=== PATIENT | male | born 1950 | race Caucasian/White ===

== ENCOUNTER 2018-01-05 07:49 | Day surgery (SDC) | payer MEDICARE, MEDICAID ==
[~2018-01-05] VITALS: Ht 180.3 cm; Wt 83.0 kg
[2018-01-05] VITALS (10 sets, daily range): BP systolic 116–156; BP diastolic 65–80
[~2018-01-05 07:49] MED LIST: HYDR-3965 PO; IBUP-1984 PO; LISI-600 PO; TIZA4CAP6 PO; ceFAZolin 2gm in dextrose, iso 100 ML IV ONE; famotidine 20mg tablet PO ONE; ringers solution, lacted 1,000 ML IV SCH
[2018-01-05 09:27] LABS: BASOPHILS % (AUTO) 0.4 % (0-1); EOSINOPHILS # (AUTO) 0.1 X10'3 (0-0.9); EOSINOPHILS % (AUTO) 2.4 % (0-6); LYMPHOCYTES # (AUTO) 1.3 X10'3 (1.1-4.8); LYMPHOCYTES % (AUTO) 22.3 % (21-51); MEAN CORPUSCULAR HEMOGLOBIN 33.2 PG (27.0-31.0); MEAN CORPUSCULAR HGB CONC 34.9 % (33.0-36.5); MEAN CORPUSCULAR VOLUME 95.1 FL (78-98); MEAN PLATELET VOLUME 7.3 FL (7.4-10.4); MONOCYTES # (AUTO) 0.6 X10'3 (0-0.9); NEUTROPHILS # (AUTO) 3.9 X10'3 (1.8-7.7); NEUTROPHILS % (AUTO) 64.9 % (42-75); PRE OP HEMATOCRIT 45.6 % (42.0-52.0); PRE OP HEMOGLOBIN 15.9 g/dL (14.0-17.9); PRE OP PLATELET COUNT 158 X10'3 (140-440); RED BLOOD COUNT 4.79 X10'6 (4.70-6.10); RED CELL DISTRIBUTION WIDTH 12.8 % (11.5-14.5)
[2018-01-05 09:42] LABS: ALBUMIN 3.5 G/DL (3.4-5.0); ALBUMIN/GLOBULIN RATIO 1.1 (1.1-1.5); ALKALINE PHOSPHATASE 73 IU/L (46-116); BLOOD UREA NITROGEN 11 MG/DL (7-18); BUN/CREATININE RATIO 16.9 (5.4-32.0); CALCIUM 8.9 MG/DL (8.5-10.1); CHLORIDE 106 MMOL/L (99-107); CREATININE 0.65 MG/DL (0.60-1.10); PRE OP ALT 78 U/L (30-65); PRE OP ANION GAP 9 (8-16); PRE OP AST 33 U/L (10-37); PRE OP BILIRUB, TOTAL 0.7 MG/DL (0.0-1.0); PRE OP GLUCOSE 109 MG/DL (70-104); PRE OP SODIUM 142 MMOL/L (135-145); TOTAL CARBON DIOXIDE 26.8 MMOL/L (24-32); TOTAL PROTEIN 6.6 G/DL (6.4-8.2); eGFR > 90 ML/MIN
[2018-01-05] MEDS ORDERED: fentaNYL/PF 50MCG/1 ML 2ML syringe IV PRN ×2 (09:50)
[2018-01-05] MEDS ORDERED: labetalol 5mg/ml 20ml inj. IV PRN (09:50)
[2018-01-05] MEDS ORDERED: morphine 4 MG/ML inj SYRINge IV PRN ×2 (09:50)
[2018-01-05] MEDS ORDERED: ringers solution, lacted 1,000 ML IV SCH (09:50)
[2018-01-05] MEDS ORDERED: hydrALAZINE 20mg/ml inj. IV PRN (09:50)
[2018-01-05] MEDS ORDERED: ondansetron/PF 4mg/2ml inj IV PRN (09:50)
[2018-01-05 10:07] LABS: CLARITY,URINE Clear (Clear); COLOR,URINE Yellow (Yellow); GLUCOSE, URINE Negative (Neg); KETONES,URINE Negative (Neg); LEUKOCYTE ESTERASE ,URINE Negative (Neg); NITRITES, URINE Negative (Neg); OCCULT BLOOD,URINE Negative (Neg); PH,URINE 7.5 (4.8-8.0); PROTEIN,URINE Negative (Neg); UROBILINOGEN,URINE 0.2 E.U/dL (0.2-1.0)
[2018-01-05 10:17] LABS: UA COLLECTION TYPE VOIDED
[2018-01-05] MEDS ORDERED: LIDOcaine 1% 30ml preserv. free vial ONE (10:33)
[2018-01-05] MEDS ORDERED: BUPIVAcaine/PF 2.5 mg/ml (0.25%) 30ml vial ONE ×2 (10:34→12:30)
[2018-01-05] MEDS ORDERED: ceFAZolin 1000mg inj ONE (10:34)
[2018-01-05] MEDS ORDERED: sevoflurane 250ml liquid IH ONE (11:55)
[2018-01-05] MEDS ORDERED: midazolam 2 mg/2 ml injection ONE (12:03)
[2018-01-05] MEDS ORDERED: fentaNYL/PF 50MCG/1 ML 2ML syringe ONE ×2 (12:03→13:07)
[2018-01-05] MEDS ORDERED: dexamethasone sod phosphate 4mg/ml inj. ONE (12:04)
[2018-01-05] MEDS ORDERED: LIDOcaine 2% (20mg/ml) 5ml vial ONE (12:04)
[2018-01-05] MEDS ORDERED: LIDOcaine 1%/PF (10mg/ml) 5ml vial ONE (12:04)
[2018-01-05] MEDS ORDERED: propofol inj 20 ML IV ONE (12:04)
[2018-01-05] MEDS ORDERED: ondansetron/PF 4mg/2ml inj ONE (12:17)
[2018-01-05] MEDS ORDERED: HYDROcodone/acetaminophen 10/325mg tab PO ONE (14:30)
== END 2018-01-05 15:45 | disposition home or self-care (01) ==
LOC: PAS 07:49
PROVIDERS: ATTEND Surgery
DX: K40.90 Unilateral inguinal hernia, without obstruction or gangrene, not specified as recurrent (principal); N43.3 Hydrocele, unspecified; I10 Essential (primary) hypertension; Z89.511 Acquired absence of right leg below knee; Z79.1 Long term (current) use of non-steroidal anti-inflammatories (NSAID); Z79.82 Long term (current) use of aspirin; Z79.899 Other long term (current) drug therapy; Z98.890 Other specified postprocedural states; Z90.49 Acquired absence of other specified parts of digestive tract
CPT/HCPCS: 36415; 49525; 55040; 80053; 81003; 85025; 93005; A6402; A6449; C1781; J0690; J1100; J2001; J2250; J2405; J2704; J3010; J3490; J7120; A7000

== ENCOUNTER 2024-07-19 13:37 | Emergency (ER) | payer MEDICARE, MEDICAID ==
[~2024-07-19] VITALS: Ht 175.3 cm; Wt 79.0 kg
[~2024-07-19 13:37] MED LIST changes: -LISI-600 PO; +LISI20TA28 PO; -ceFAZolin 2gm in dextrose, iso 100 ML IV ONE; -famotidine 20mg tablet PO ONE; -ringers solution, lacted 1,000 ML IV SCH
[2024-07-19 13:41] VITALS: TEMP 98.1
[2024-07-19] MEDS: LIDOcaine 1% 30ml preserv. free vial IJ STA (14:54)
[2024-07-19] MEDS: TETanus/Pertussis (Acell)/Diphther VAC/PF (Tdap-Adult) 0.5ml syringe IMVAC ONE (14:54)
[2024-07-19 15:53] VITALS: BP 134/76; PULSE 67; RESP 16; O2SAT 96
== END 2024-07-19 15:56 | disposition home or self-care (01) ==
LOC: ER 13:37
DX: S61.211A Laceration without foreign body of left index finger without damage to nail, initial encounter (principal); Z79.899 Other long term (current) drug therapy; Z79.1 Long term (current) use of non-steroidal anti-inflammatories (NSAID); W26.8XXA Contact with other sharp object(s), not elsewhere classified, initial encounter; Y93.89 Activity, other specified; Y92.89 Other specified places as the place of occurrence of the external cause; Y99.8 Other external cause status
CPT/HCPCS: 12001; 90715; 99284; A6258; G0008; Z7610; 90471; A6449